=== PATIENT | female | born 2000 | race Caucasian/White ===

== ENCOUNTER 2020-04-20 00:33 | Emergency (ER) | payer MEDICAID ==
[~2020-04-20] VITALS: Ht 162.6 cm; Wt 72.7 kg
[2020-04-20 00:47] VITALS: BP 127/83
[2020-04-20] MEDS ORDERED: FLUT16SP2 BOTHNARES (01:22)
== END 2020-04-20 01:29 | disposition home or self-care (01) ==
LOC: ER 00:34
DX: B34.9 Viral infection, unspecified (principal); R09.89 Other specified symptoms and signs involving the circulatory and respiratory systems; R06.02 Shortness of breath; R05 Cough; J45.909 Unspecified asthma, uncomplicated; Z88.8 Allergy status to other drugs, medicaments and biological substances; Z79.899 Other long term (current) drug therapy
CPT/HCPCS: 99283